=== PATIENT | female | born 1990 | race Caucasian/White ===

== ENCOUNTER 2019-08-02 05:19 | Inpatient (IN) ==
--- NOTE | 2019-08-01 21:56 | HISTORY AND PHYSICAL ---
HISTORY OF PRESENT ILLNESS: Ms Kang is a 28-year-old, G4, P2-1-0-3 at 38 weeks and 0 days with insulin-dependent gestational diabetes, obesity, history of x1, NATTY 1, rubella nonimmune, history of TOLAC x1. The patient presents for scheduled at 38 weeks secondary to insulin-dependent gestational diabetes. The patient currently reports good movement. Denies contractions, leakage of fluid or bleeding. Initial labs showed blood type as AB-positive with negative antibodies, HIV negative, RPR nonreactive, hepatitis B nonreactive, hepatitis C nonreactive, rubella nonimmune as previously stated, gonorrhea/Chlamydia negative. Urine drug screen negative. Urine culture negative. Hemoglobin A1c 5.4. Hemoglobin at 12.8 and platelets at 215,000. The patient has been followed by Maternal- Medicine with current to assess growth and testing with nonstress test and biophysical profile were completed throughout current . 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 PAST SURGICAL HISTORY: section x1. MEDICATIONS: vitamins, Lantus 17 units at bedtime. ALLERGIES: No known drug allergies. GYNECOLOGIC HISTORY: Exposure to Trichomonas in current and treated. Menarche at age 13. OBSTETRICAL HISTORY: G4, P2-1-0-3. First , full-term spontaneous vaginal delivery. Second , delivery at 34 weeks for breech presentation and labor. Third , vaginal after section. FAMILY HISTORY: Noncontributory. SOCIAL HISTORY: Denies tobacco, alcohol, or drug use. PHYSICAL EXAMINATION: VITAL SIGNS: Temperature 97.2 degrees Fahrenheit, blood pressure 120/82, pulse rate 88. Height 5 feet 6 inches tall. Weight 258 pounds, body mass index 41.6 kg/m2. GENERAL: No acute distress. Alert, awake, oriented x3. CARDIOVASCULAR: Regular rate and rhythm. Positive S1, S2. RESPIRATORY: Clear to auscultation bilaterally. Negative rhonchi, rales, or wheezing. ABDOMEN: Gravid, nontender to palpation. Soft. EXTREMITIES: Lower extremities +1 edema. Negative calf tenderness. LABORATORY: Group B strep status positive, rubella nonimmune. ASSESSMENT: Ms Kang is a 28-year-old 4, para 2-1-0-3 at 38 weeks gestation, who presents for a scheduled repeat delivery due to insulin-dependent gestational diabetes. 1. Admit to Labor and Delivery for scheduled repeat delivery. 2. Obtain routine labs for repeat . 3. Electronic monitoring to be performed pre- and post spinal anesthesia. 4. The patient received counseling on insulin therapy from both Maternal- Medicine as well as Dr. Alanis and advised no Lantus use or insulin use on day of procedure and advised to take 50% of Lantus the night prior to procedure. 5. The patient counseled on the risks, benefits, and alternatives to repeat . Risks not limited to infection, bleeding, injury to surrounding organs including bowel, bladder and ureters. The patient understands risks and agrees to procedure. 6. GBS status positive. However, GBS prophylaxis not indicated if patient presents unruptured. 7. Plan for prophylactic antibiotics given 1 hour prior to incision.
[2019-08-02] MEDS ORDERED: REGLAN PO ONE (05:21)
[2019-08-02] MEDS ORDERED: KEFZOL 1 GM/D5W 1 GM/50 ML IVPB IV PRN (05:21)
[2019-08-02] MEDS ORDERED: PEPCID PO ONE (05:21)
[2019-08-02] MEDS ORDERED: BICITRA PO ONE (05:25)
[2019-08-02] MEDS ORDERED: KEFZOL 2 GM/D5W 2 GM/50 ML IVPB IV ONE (05:30)
[2019-08-02] MEDS ORDERED: LR 1,000 ML IV SCH ×2 (05:30→17:15)
[2019-08-02 05:55] LABS: URINE SOURCE VOIDED
[2019-08-02 06:05] LABS: BASO# 0.03 X1000 (0.0-0.2); BASO% 0.2 % (0.0-0.8); EOS# 0.11 X1000 (0.0-0.7); EOS% 0.8 % (0.0-10.0); HEMATOCRIT 37.2 % (37.0-47.0); HEMOGLOBIN 12.2 g/dL (12.0-16.0); IMM GRAN# 0.04 X1000 (0.0-0.04); IMM GRAN% 0.3 % (0.0-0.5); LYMPH# 2.61 X1000 (1.2-3.4); LYMPH% 18.4 % (20.5-51.1); MCH 26.4 PG (27-31); MCHC 32.8 g/dL (33-37); MCV 80.5 FL (81-99); MONO# 1.16 X1000 (0.11-0.59); MONO% 8.2 % (1.7-9.3); MPV 13.4 FL (7.4-10.4); NEUT# 10.24 X1000 (1.4-6.5); NEUT% 72.1 % (42.2-75.2); PLT 174 X1000 (130-400); RBC 4.62 XMIL (4.2-5.4); RDW 14.7 % (11.5-14.5); WBC 14.19 X1000 (4.8-10.8)
[2019-08-02 06:07] LABS: BILIRUBIN URINE NEGATIVE (NEGATIVE); BLOOD URINE NEGATIVE (NEGATIVE); COLOR ORANGE; GLUCOSE URINE NEGATIVE (NEGATIVE); KETONE URINE NEGATIVE (NEGATIVE); LEUKOCYTES URINE LARGE (NEGATIVE); NITRITE URINE NEGATIVE (NEGATIVE); PROTEIN URINE 30 mg/dL (NEGATIVE); SP GRAVITY URINE 1.025; TURBIDITY URINE HAZY (CLEAR); UROBILINOGEN URINE 2 mg/dL (NORMAL)
[2019-08-02 06:18] LABS: UR AMPHETAMINES QUAL NONE DETECTED (NONE DETECT); UR BARBITUATES QUAL NONE DETECTED (NONE DETECT); UR BENZODIAZEPIN QUAL NONE DETECTED (NONE DETECT); UR CANNABINOIDS QUAL NONE DETECTED (NONE DETECT); UR COCAINE QUAL NONE DETECTED (NONE DETECT); UR METHADONE QUAL NONE DETECTED (NONE DETECT); UR OPIATES QUAL NONE DETECTED (NONE DETECT); UR OXYCODONE QUAL NONE DETECTED (NONE DETECT); UR PCP QUAL NONE DETECTED (NONE DETECT)
[2019-08-02] MEDS: LR 1,000 ML IV SCH (06:35)
[2019-08-02] MEDS ORDERED: NEO-SYNEPHRINE ONE (06:37)
[2019-08-02] MEDS ORDERED: DURAMORPH ONE (06:37)
[2019-08-02] MEDS ORDERED: PITOCIN ONE ×2 (06:37→07:27)
--- NOTE | 2019-08-02 06:40 | H&P REVIEW ---
H&P Update H&P Review: H&P was reviewed and patient was examined, No change has occurred in the patient's condition
[2019-08-02] MEDS ORDERED: SODIUM CHLORIDE 0.9% 10 ML ONE (06:46)
[2019-08-02 07:16] LABS: AGAP 16; ALB/GLOB RATIO 1.4; ALBUMIN 3.7 g/dL (3.5-5.0); ALKALINE PHOSPHATASE 142 U/L (32-104); BUN 6 mg/dL (8-22); CALCIUM 9.4 mg/dL (8.8-10.2); CHLORIDE 104 mmol/L (98-107); COSMO 272; CREATININE 0.7 mg/dL (0.5-0.9); ESTIMATED GFR > 60; GLUCOSE 106 mg/dL (70-104); GOT 22 U/L (10-30); GPT 11 U/L (10-36); POTASSIUM 3.9 mmol/L (3.5-5.1); SODIUM 137 mmol/L (136-145); TCO2 17 mmol/L (25-35); TOTAL BILIRUBIN 0.28 mg/dL (0.20-1.00); TOTAL PROTEIN 6.3 g/dL (6.3-8.3)
[2019-08-02] MEDS ORDERED: VERSED ONE (07:27)
[2019-08-02] MEDS ORDERED: ZOFRAN ONE (07:27)
[2019-08-02] MEDS ORDERED: DEMEROL IM PRN (08:04)
[2019-08-02] MEDS ORDERED: HYDROXYZINE IM PRN (08:04)
[2019-08-02] MEDS ORDERED: PITOCIN 20 UNITS/NS 20 UNITS/1,000 ML IV.SOLN IV ONE (08:04)
[2019-08-02] MEDS ORDERED: AMBIEN PO PRN (08:04)
[2019-08-02] MEDS ORDERED: BOOSTRIX VACCINE IM ONE (08:04)
[2019-08-02] MEDS ORDERED: DULCOLAX PR PRN (08:04)
[2019-08-02] MEDS ORDERED: PHENERGAN IM PRN (08:04)
[2019-08-02] MEDS ORDERED: MYLICON PO PRN (08:04)
[2019-08-02] MEDS ORDERED: M-M-R II VACCINE SUBQ ONE (08:04)
[2019-08-02] MEDS ORDERED: PITOCIN IM PRN (08:04)
[2019-08-02] MEDS ORDERED: MORPHINE IV PRN (08:23)
[2019-08-02] MEDS ORDERED: BENADRYL IV PRN ×2 (08:30→17:15)
[2019-08-02] MEDS ORDERED: NARCAN INJ PRN (08:30)
[2019-08-02] MEDS ORDERED: ZOFRAN ODT PO PRN (08:30)
[2019-08-02] MEDS ORDERED: ZOFRAN IV PRN ×2 (08:30)
[2019-08-02] MEDS: MYLICON PO SCH ×4 (09:49→20:25)
[2019-08-02] MEDS: PRECARE PO SCH (09:50)
[2019-08-02] MEDS: TORADOL IV SCH ×3 (11:25→20:25)
[2019-08-02] MEDS ORDERED: TORADOL IV SCH (14:00)
[2019-08-02] MEDS: DEMEROL PO PRN (15:58)
[2019-08-02] MEDS ORDERED: NARCAN IV PRN (17:15)
[2019-08-02] MEDS: MORPHINE PCA IV PRN (17:26)
[2019-08-02] MEDS: PITOCIN 10 UNITS/NS 1,000 ML IV SCH (17:43)
[2019-08-02] MEDS: PERICOLACE PO SCH (20:25)
[2019-08-03] MEDS: LR 1,000 ML IV SCH ×3 (00:20→05:45)
[2019-08-03] MEDS: PITOCIN 10 UNITS/NS 1,000 ML IV SCH (02:17)
[2019-08-03] MEDS: TORADOL IV SCH (02:17)
[2019-08-03] MEDS: MORPHINE PCA IV PRN (04:08)
[2019-08-03 05:32] LABS: BASO# 0.03 X1000 (0.0-0.2); BASO% 0.2 % (0.0-0.8); EOS# 0.15 X1000 (0.0-0.7); EOS% 1.2 % (0.0-10.0); HEMATOCRIT 31.5 % (37.0-47.0); HEMOGLOBIN 9.9 g/dL (12.0-16.0); IMM GRAN# 0.04 X1000 (0.0-0.04); IMM GRAN% 0.3 % (0.0-0.5); LYMPH# 2.22 X1000 (1.2-3.4); LYMPH% 18.2 % (20.5-51.1); MCHC 31.4 g/dL (33-37); MCV 82.7 FL (81-99); MONO# 1.08 X1000 (0.11-0.59); MONO% 8.8 % (1.7-9.3); MPV 12.6 FL (7.4-10.4); NEUT# 8.71 X1000 (1.4-6.5); NEUT% 71.3 % (42.2-75.2); PLT 155 X1000 (130-400); RBC 3.81 XMIL (4.2-5.4); RDW 14.8 % (11.5-14.5); WBC 12.23 X1000 (4.8-10.8)
[2019-08-03] MEDS ORDERED: LR 1,000 ML IV SCH (08:04)
[2019-08-03] MEDS: MYLICON PO SCH ×4 (08:41→20:53)
[2019-08-03] MEDS: MOTRIN PO PRN ×2 (08:41→18:58)
[2019-08-03] MEDS: PRECARE PO SCH (08:41)
[2019-08-03] MEDS ORDERED: TYLENOL PO ONE (12:03)
[2019-08-03] MEDS: DEMEROL PO PRN ×2 (18:59→20:53)
[2019-08-03] MEDS: ATARAX PO PRN (19:39)
[2019-08-03] MEDS: PERICOLACE PO SCH (20:53)
[2019-08-04] MEDS: DEMEROL PO PRN ×3 (01:47→13:48)
[2019-08-04] MEDS: ATARAX PO PRN (01:47)
[2019-08-04] MEDS: MOTRIN PO PRN (07:55)
[2019-08-04] MEDS: MYLICON PO SCH ×2 (09:43→13:48)
[2019-08-04] MEDS: PRECARE PO SCH (09:43)
[2019-08-04] MEDS ORDERED: CAFFEINE/SODIUM BENZOATE 500 MG in NS 1,000 ML IV ONE (11:00)
--- NOTE | 2019-08-04 13:46 | DISCHARGE SUMMARY ---
ADMISSION DATE: 08/02/2019 DISCHARGE DATE: 08/04/2019 ADMISSION DIAGNOSIS: IUP 30 weeks with insulin-dependent gestational diabetes for repeat section. FINAL DIAGNOSIS: IUP 30 weeks with insulin-dependent gestational diabetes for repeat section. PROCEDURE: Repeat low-transverse section. BRIEF HISTORY: The patient is a 28-year-old G4, P2, A1-0-3 at 38 weeks gestation, insulin- dependent gestational diabetes, obesity, history of x1, NATTY 1, rubella nonimmune, history of trial of labor. Patient is scheduled for repeat secondary to insulin- dependent gestational diabetes. Blood type is AB positive and all her labs were within normal limits. PAST MEDICAL HISTORY: delivery, insulin-dependent gestational diabetes, history of successful vaginal after , obesity. PAST SURGICAL HISTORY: x1. MEDICATIONS: vitamins and Lantus 17 units subcutaneously at bedtime. ALLERGIES: No known drug allergies. LACE STRIPPER HISTORY: Exposure to Trichomonas in current and treated. Menarche at age 13. OB HISTORY: G4, P2, 1-0-3. The patient had for breech at 34 weeks and labor. First full-term spontaneous vaginal delivery. Third successful and this for repeat section. FAMILY HISTORY: Noncontributory. SOCIAL HISTORY: No tobacco use. Alcohol use. PHYSICAL EXAMINATION: Temperature 97.2 degrees, blood pressure 120/82, pulse of 88, respirations 20, height 5 feet 6 inches, weight 258 pounds. General: No acute distress. CV: Regular rate and rhythm. Respiratory: Lungs clear to auscultation. Abdomen: Gravid, nontender. Extremities: 1+ lower extremity edema. Negative calf tenderness. LABORATORY DATA: Group B strep positive. ASSESSMENT: A 28-year-old white female, G4, P2, 1-0-3 at 38 weeks gestation with a complication of gestational diabetes on insulin and will have a repeat low-transverse . The patient had low transverse section on 08/02/2019 and delivery of a male infant, 6 pounds 14 ounces with Apgars of 8 and 9 at 07:20 on 08/02/2019. Patient's postoperative course was unremarkable. Her hemoglobin postop was 9.9, hematocrit 31.5. The patient did complain of headache afterward, but she was advanced on her diet and became ambulatory. On postop day #2, she was ambulating, tolerating a regular diet and had positive flatus and expressed desire to go home. Her headaches, after discussion with Anesthesia, the recommendation was to try IV caffeine and she was given medication through the IV and felt better. The patient feels as though she could go home at present time. The patient will be discharged home. DISCHARGE PLANS: Patient will be discharged home to follow up in one week for postop check. Patient given instructions on lifting precautions and pelvic rest for the next six weeks. She was instructed to call for temperature greater than 101, heavy vaginal bleeding, or severe abdominal pain. At present time we will just discontinue Lantus and watch the patient's blood sugars as we progress through post course. DISCHARGE MEDICATIONS: Include Percocet 10, Colace 100 mg, iron, and Motrin 800 mg. cc: Miguel Guzman III, MD
[2019-08-04 14:35] VITALS: BP 121/70
--- NOTE | 2019-08-06 09:06 | OPERATIVE NOTE ---
PROCEDURE DATE: 08/02/2019 SURGEON: Dr. Suri Mendoza [place] DETECTIVE: Miguel Guzman III, M. D. PREOPERATIVE DIAGNOSIS: 1. Intrauterine at 38 weeks 0 days. 2. Previous x1 3. 3. Gestational diabetes, insulin dependent. POSTOPERATIVE DIAGNOSIS: 1. Intrauterine at 38 weeks 0 days. 2. Previous x1 3. 3. Gestational diabetes, insulin dependent. PROCEDURE PERFORMED: Repeat low transverse section. ANESTHESIA: Spinal. ESTIMATED BLOOD LOSS: 700 mL. SPECIMENS REMOVED: Placenta. FINDINGS: Normal bilateral tubes and ovaries. COMPLICATIONS: No complications. SURGICAL RISKS: The patient was informed of the risks and benefits of the procedure. Risks included, but were not limited to, bleeding, infection, injury to the internal organs and possible hysterectomy. The patient expressed understanding of the risks involved. All questions were answered and the patient agreed to the procedure. DESCRIPTION OF PROCEDURE: The patient was taken to the operating room where a time-out was performed to confirm correct patient and correct procedure. Spinal anesthesia was adequately established and prophylactic intravenous antibiotics were administered. The patient was placed in a dorsal supine position with a leftward tilt of the hips. The patient was prepped and draped in usual sterile fashion for a Pfannenstiel skin incision. The incision was made in the skin with a surgical scalpel and sharp dissection was carried out over subsequent layers of tissue including the fascia followed by the Bovie electrocautery for hemostasis. The fascia was incised at the midline and the fascial incision was extended bilaterally using the Bovie electrocautery. The inferior edge of the fascial incision was grasped with Darrion clamps, tented up and the underlying rectus muscles were dissected off bluntly and sharply using the Bovie electrocautery. Attention was then turned to the superior edge which was grasped with Darrion clamps, tented up, and underlying rectus muscles dissected off bluntly using the Bovie electrocautery. The rectus muscles were then divided at the midline and the peritoneum was identified and blood bluntly entered at its superior margin taking care to avoid the bladder. The peritoneal incision was extended superiorly and inferiorly using the Bovie electrocautery and good visualization of the bladder. The bladder blade was inserted and the vesicouterine peritoneum was identified grasped with smooth forceps and cut laterally to both sides using the Metzenbaum scissors. A bladder flap was created using blunt and sharp dissection with the Metzenbaum scissors. The bladder blade was reinserted, and a transverse incision was made in the lower uterine segment using the scalpel. The uterine incision was extended bilaterally using blunt dissection. The amniotic sac was entered and the amniotic fluid was noted to be clear. The surgeon's hand was placed in the uterine cavity. The head was identified elevated into the abdomen and delivered through the uterine incision with the assistance of fundal pressure. The was examined for nuchal cord. No nuchal cord was identified. The infant was then delivered with traction and the assistance of fundal pressure. The 's oral nasal passages were bulb suctioned. On delivery, the cord was clamped and cut. The was then passed off the table to the waiting closing coordinator staff for further care. Cord blood was obtained for analysis. The placenta was delivered manually intact with a three-vessel cord. Oxytocin was administered by IV infusion to enhance uterine contraction. The uterus was exteriorized and cleared of all clots and remaining products of conception. The uterine incision was reapproximated using 0 Monocryl absorbable suture in a running locked fashion. Good hemostasis was confirmed. Uterus was replaced in the abdomen and the pericolic gutters were cleared of all clots. The fascia was reapproximated using 0 Vicryl in a running nonlocked fashion. The subcutaneous fat was reapproximated using 2-0 plain gut in a running nonlocked fashion. The skin was reapproximated using 4-0 Monocryl suture on a Frankie needle insert in a subcuticular stitch fashion. All needle, sponge, and instrument counts were noted to be correct x2 at the end of the procedure. The patient tolerated the procedure well and was transferred to recovery room in stable condition.
== END 2019-08-04 14:10 | disposition home or self-care (01) | DRG 788 ==
LOC: LD 05:19
PROVIDERS: ADMIT Student in an Organized Health Care Education/Training Program; ATTEND Student in an Organized Health Care Education/Training Program